=== PATIENT | female | born 1970 ===

== ENCOUNTER 2018-11-04 08:35 | Outpatient (CLI) | payer OTHER | END 2018-11-04 08:36 | disposition home or self-care (01) | LOC: C.RADH 08:35 | DX: Z00.01 Encounter for general adult medical examination with abnormal findings (principal); Z83.3 Family history of diabetes mellitus; Z68.33 Body mass index [BMI] 33.0-33.9, adult; Z12.31 Encounter for screening mammogram for malignant neoplasm of breast ==

== ENCOUNTER 2018-12-16 08:07 | Outpatient (CLI) | payer OTHER | END 2018-12-16 08:08 | disposition home or self-care (01) | LOC: C.MAMMO 08:07 | DX: Z00.01 Encounter for general adult medical examination with abnormal findings (principal); Z83.3 Family history of diabetes mellitus; Z68.33 Body mass index [BMI] 33.0-33.9, adult; Z12.31 Encounter for screening mammogram for malignant neoplasm of breast ==

== ENCOUNTER 2019-01-16 07:22 | Outpatient (CLI) | payer OTHER | END 2019-01-16 07:23 | disposition home or self-care (01) | LOC: C.PAT 07:22 | DX: R06.02 Shortness of breath (principal); Q21.1 Atrial septal defect ==

== ENCOUNTER 2019-01-19 07:33 | Day surgery (SDC) | payer OTHER | END 2019-01-19 12:30 | disposition home or self-care (01) | LOC: C.CATHLAB 07:33 | DX: R06.02 Shortness of breath (principal); Q21.1 Atrial septal defect ==